=== PATIENT | male | born 1975 | race Caucasian/White ===

== ENCOUNTER 2017-04-04 16:38 | Emergency (ER) | payer SELFPAY ==
[2017-04-04 17:00] VITALS: BMI 25.8
[2017-04-04 17:02] VITALS: BP 136/81; PULSE 103; RESP 18; TEMP 98.2; O2SAT 98
--- NOTE | 2017-04-04 17:55 | C.PDOC ---
History Of Present Illness 41 y/o male presents to the ED with complaints of chest pain onset at 1300 today during heated argument. Pain persistent but has improved. Pain localized to left chest. Pt reports similar episode 3 months ago, seen in [place] told "due to nerves." Radio Broadcaster used. Denies vomiting, SOB or any other complaints. Time Seen by Provider: 04/04/17 17:41 Chief Complaint (Nursing): Chest Pain History Per: Patient History/Exam Limitations: no limitations Onset/Duration Of Symptoms: Hrs Current Symptoms Are (Timing): Better Severity: Moderate Quality: "Pain" Modifying Factors: None Alleviating Factors: None Recent travel outside of the [place]: No Past Medical History Reviewed: Historical Data, Nursing Documentation, Vital Signs Vital Signs: Last Vital Signs Temp 98.2 F 04/04/17 17:00 Pulse 103 H 04/04/17 17:00 Resp 18 04/04/17 17:00 BP 136/81 04/04/17 17:00 Pulse Ox 98 04/04/17 17:59 Family History: States: Unknown Family Hx - Social History Hx Alcohol Use: No Hx Substance Use: No - Immunization History Hx Tetanus Toxoid Vaccination: No Hx Influenza Vaccination: No Hx Pneumococcal Vaccination: No Review Of Systems Except As Marked, All Systems Reviewed And Found Negative. Cardiovascular: Positive for: Chest Pain Respiratory: Negative for: Shortness of Breath Gastrointestinal: Negative for: Vomiting Physical Exam - Physical Exam Appears: Non-toxic, No Acute Distress, Other (anxious, calm and cooperative) Skin: Warm, Dry, No Rash Head: Atraumatic, Normacephalic Neck: Normal, Normal ROM, Supple Chest: Symmetrical, No Tenderness Cardiovascular: Rhythm Regular, No Murmur Respiratory: Normal Breath Sounds, No Rales, No Rhonchi, No Wheezing Gastrointestinal/Abdominal: Normal Exam, Soft, No Tenderness Extremity: Normal ROM, No Pedal Edema Extremity: Bilateral: Atraumatic Neurological/Psych: Oriented x3, Normal Speech, Normal Cognition ED Course And Treatment - Laboratory Results Result Diagrams: 04/04/17 18:04 04/04/17 18:04 ECG: Interpreted By Me, Viewed By Me ECG Rhythm: Sinus Tachycardia Rate From EC (BPM) O2 Sat by Pulse Oximetry: 98 (RA) Pulse Ox Interpretation: Normal Reevaluation Time: 18:38 Reassessment Condition: Improved Disposition Counseled Patient/Family Regarding: Studies Performed, Diagnosis, Need For Followup - Disposition Referrals: [facility] [Outside] [facility] [Outside] Disposition: HOME/ ROUTINE Disposition Time: 18:38 Condition: IMPROVED Instructions: Chest Pain (ED), Anxiety (ED) Forms: Work Excuse Print Language: SLOVENIAN - Clinical Impression Clinical Impression: Chest pain, Anxiety - Scribe Statement The provider has reviewed the documentation as recorded by the Alen Gillespie Provider Attestation: All medical record entries made by the Alen were at my direction and personally dictated by me. I have reviewed the chart and agree that the record accurately reflects my personal performance of the history, physical exam, medical decision making, and the department course for this patient. I have also personally directed, reviewed, and agree with the discharge instructions and disposition.
[2017-04-04 18:09] LABS: BASO % 0.7 % (0.0-2.0); EOS # 0.1 K/uL (0.0-0.7); EOS % 1.4 % (0.0-4.0); HEMOGLOBIN 14.9 g/dL (12.0-18.0); LYMPH # 2.8 K/uL (1.0-4.3); LYMPH % 37.5 % (20.0-40.0); MEAN CELL VOLUME 85.8 fL (80.0-94.0); MEAN CORPUSCULAR HGB CONC 32.7 g/dL (33.0-37.0); MEAN PLATELET VOLUME 7.1 fL (7.2-11.7); MONO # 0.6 K/uL (0.0-0.8); MONO % 7.9 % (0.0-10.0); NEUT # 3.9 K/uL (1.8-7.0); NEUT % 52.5 % (50.0-75.0); RBC 5.3 Mil/uL (4.40-5.90); RED CELL DISTRIBUTION WIDTH 13.6 % (11.5-14.5); WHITE BLOOD COUNT 7.4 K/uL (4.8-10.8)
[2017-04-04 18:17] LABS: GFR AFRICAN-AMERICAN > 60; GFR NON-AFRICAN AMERICAN > 60
[2017-04-04 18:18] LABS: BLOOD UREA NITROGEN 21 mg/dL (9-20); CALCIUM 8.8 mg/dl (8.6-10.4)
--- NOTE | 2017-04-05 09:44 | RAD ---
HISTORY: chest pain COMPARISON: No prior. TECHNIQUE: Chest PA and lateral FINDINGS: LUNGS: No active pulmonary disease. PLEURA: No significant pleural effusion identified. No pneumothorax apparent. CARDIOVASCULAR: Normal. OSSEOUS STRUCTURES: No significant abnormalities. VISUALIZED UPPER ABDOMEN: Normal. OTHER FINDINGS: None. IMPRESSION: No active disease.
--- NOTE | 2017-04-06 00:26 | CARD ---
APPROVED REPORT EKG Measurement Heart [id number] <Conclusion> Sinus tachycardia Otherwise normal ECG
== END 2017-04-04 18:43 | disposition home or self-care (01) ==
LOC: C.ER 16:38
DX: R07.9 Chest pain, unspecified (principal); F41.9 Anxiety disorder, unspecified